=== PATIENT | male | born 1970 | race Two or more races ===

== ENCOUNTER 2020-05-05 14:17 | Outpatient (CLI) | payer OTHER | END 2020-05-05 23:59 | disposition home or self-care (01) | LOC: MSC 14:17 | PROVIDERS: ATTEND Internal Medicine | DX: R10.32 Left lower quadrant pain (principal); E78.00 Pure hypercholesterolemia, unspecified; N52.9 Male erectile dysfunction, unspecified; Z79.52 Long term (current) use of systemic steroids; Z79.899 Other long term (current) drug therapy ==

== ENCOUNTER 2021-08-27 18:33 | Inpatient (IN) | payer OTHER ==
[~2021-08-27] VITALS: Ht 172.7 cm; Wt 78.9 kg
--- NOTE | 2021-08-27 18:43 | NUR ---
BIB C/O L SIDED CHEST PAIN PRESSURE LIKE RADIATES TO L ARM X 2 DAYS. PLACED COMFORTABLY ON B12. ATTACHED TO TWX OPERATOR. VITALS CHECKED. PATIENT IS ALERT, ORIENTED X4.
--- NOTE | 2021-08-27 18:55 | NUR ---
OBEDIENCE TRAINER DRAW BLOOD SAMPLES FOR TESTING
--- NOTE | 2021-08-27 19:03 | NUR ---
IV CANNULA G20 INSERTED ON LEFT FOREARM. FLUSHED AND CHECKED FOR PATENTCY.
--- NOTE | 2021-08-27 19:06 | NUR ---
CXR DONE AT BEDSIDE
[2021-08-27 20:04] LABS: BASOPHILS % (AUTO) 0.6 % (0.0-2.0); EOSINOPHILS % (AUTO) 4.5 % (0.0-6.0); HEMATOCRIT 38 % (39-51); HEMOGLOBIN 12.6 g/dL (13.5-17.5); LYMPHOCYTES # (AUTO) 1.9 K/uL (0.8-4.8); LYMPHOCYTES % (AUTO) 30.7 % (20.0-44.0); MEAN CORPUSCULAR HGB CONC 34 g/dl (31.0-36.0); MEAN CORPUSCULAR VOLUME 89 fL (80-96); MONOCYTES # (AUTO) 0.6 K/uL (0.1-1.30); MONOCYTES % (AUTO) 9.7 % (2.0-12.0); NEUTROPHILS # (AUTO) 3.4 K/uL (1.8-8.9); NEUTROPHILS % (AUTO) 54.5 % (43.0-81.0); PLATELET COUNT (AUTO) 372 K/uL (150-450); RED BLOOD CELL COUNT(AUTO) 4.22 MIL/uL (4.5-6.0); WHITE BLOOD COUNT (AUTO) 6.2 K/uL (4.3-11.0)
[2021-08-27] MEDS ORDERED: ONDANSETRON HCL/PF 4 MG/2 ML VIAL IVP PRN (20:30)
[2021-08-27] MEDS ORDERED: DOCUSATE SODIUM 100 MG CAPSULE PO PRN (20:30)
[2021-08-27] MEDS ORDERED: MORPHINE SULFATE INJ 2 MG/ML DISP.SYRIN IV PRN (20:30)
[2021-08-27] MEDS ORDERED: ASPIRIN 81 MG TAB.CHEW PO ONE (20:30)
[2021-08-27] MEDS ORDERED: MAG HYDROX/AL HYDROX/SIMETH 30 ML UDC PO PRN (20:30)
[2021-08-27] MEDS ORDERED: NITROGLYCERIN 0.4 MG/TAB BOTTLE SL PRN (20:30)
[2021-08-27 20:36] LABS: CALCIUM, SERUM 9.1 mg/dL (8.5-10.1); CARBON DIOXIDE 26 mmol/L (21-32); GLUCOSE 119 mg/dL (74-106); UREA NITROGEN, BLOOD 17 mg/dL (7-18)
[2021-08-27] MEDS ORDERED: ASPIRIN EC 81 MG TABLET.DR PO ONE (20:36)
[2021-08-27 20:48] LABS: CHLORIDE 100 mmol/L (98-107); POTASSIUM 3.5 mmol/L (3.5-5.1); SODIUM SERUM 135 mmol/L (136-145)
--- NOTE | 2021-08-27 20:54 | NUR ---
2DECHO DONE AT BEDSIDE
--- NOTE | 2021-08-27 21:33 | NUR ---
REPORT GIVEN TO GENEVIEVE CHICAS. PATIENT WILL BE GOING TO [facility] 313A.
[2021-08-27] MEDS ORDERED: ATOR20TA PO (21:35)
[2021-08-27] MEDS ORDERED: BUPR-53 PO (21:35)
--- NOTE | 2021-08-27 21:40 | NUR ---
TRANSFERRED TO 313 UNDER ACLS
[2021-08-27 21:45] VITALS: BP 141/88
[2021-08-27] MEDS ORDERED: SIMVASTATIN 20 MG TABLET PO SCH (22:00)
--- NOTE | 2021-08-27 22:30 | NUR ---
RESEARCH PHYSIOLOGIST ADMITTING NOTES: RECEIVED PATIENT FROM ER [facility]IA [facility] [place], ON STABLE CONDITION, NO COMPLAIN OF PAIN AND DISCOMFORT AT THIS TIME, ON TELE MONITORING SB-55 NO SYMPTOMS WAS OBSERVED, PATIENT IS A/O X4 ABLE TO EXPRESS NEEDS, AMBULATORY WITH SUPERVISION. SKIN ASSESSMENT DONE, SKIN IS INTACT, NO SKIN ISSUES WAS OBSERVED, INVENTORY LIST UPDATED AND SIGNED, PATIENT WAS PLACVED IN BED COMFORTABLY, BED IN LOW POSITION, CALL LIGHTS WITHIN REACH, PATIENT WAS ORIENTED TO ROOM,\ INSTRUCTED TO USE THE CALL LIGHTS WHEN NEEDED ASSISTANCE, ALL NEEDS MET, WILL CONTINUE TO MONITOR.
[2021-08-28] VITALS: BP 126/76
[2021-08-28 03:09] LABS: BASOPHILS % (AUTO) 0.7 % (0.0-2.0); EOSINOPHILS % (AUTO) 4.9 % (0.0-6.0); HEMATOCRIT 38 % (39-51); HEMOGLOBIN 12.5 g/dL (13.5-17.5); LYMPHOCYTES % (AUTO) 39.6 % (20.0-44.0); MEAN CORPUSCULAR HGB CONC 33 g/dl (31.0-36.0); MEAN CORPUSCULAR VOLUME 88 fL (80-96); MONOCYTES # (AUTO) 0.6 K/uL (0.1-1.30); MONOCYTES % (AUTO) 11.8 % (2.0-12.0); NEUTROPHILS # (AUTO) 2.1 K/uL (1.8-8.9); PLATELET COUNT (AUTO) 353 K/uL (150-450); RED BLOOD CELL COUNT(AUTO) 4.29 MIL/uL (4.5-6.0)
[2021-08-28 03:41] LABS: ALBUMIN 3.6 g/dL (3.4-5.0); BILIRUBIN,TOTAL 0.3 mg/dL (0.2-1.0); CALCIUM, SERUM 8.9 mg/dL (8.5-10.1); CREATININE 0.9 mg/dL (0.6-1.3); POTASSIUM 3.8 mmol/L (3.5-5.1); TOTAL PROTEIN, SERUM 6.7 g/dL (6.4-8.2)
[2021-08-28 03:52] LABS: THYROID STIMULATING HORMONE 2.434 uIU/mL (0.358-3.74)
[2021-08-28 04:00] VITALS: BP 139/80
--- NOTE | 2021-08-28 07:18 | NUR ---
DELI COOK CLOSING NOTES: PATIENT AWAKE IN BED, BED IN LOW POSITION, CALL LIGHTS WITHIN REACH, NO COMPLAIN OF PAIN AND DISCOMFORT AT THIS TIME, ON ROOM AIR SATURATING WELL, ON TELE [id number], A/OX4 ABLE TO MAKE NEEDS KNOWN, WITH IV LINE AT LFA#20 SL, PATIENT KEPT CLEAN AND DRY ALL NEEDS MET ENDORSE TO INCOMING SHIFT.
[2021-08-28] MEDS: ACETAMINOPHEN 325 MG TABLET PO PRN ×2 (07:39→14:26)
--- NOTE | 2021-08-28 07:45 | NUR ---
RN NOTES RESTING IN BED, REQUESTED TYLENOL FOR HEADACHE, PROVIDED TO PATIENT. NO ACUTE DISTRESS AT THIS TIME.
[2021-08-28 08:00] VITALS: BP 135/80
[2021-08-28 08:44] LABS: CHOLESTEROL 169 mg/dL (<200); FERRITIN 59 ng/mL (8-388); HDL CHOLESTEROL 52 mg/dL (40-60); LDL 99 mg/dL (0-99); TRIGLYCERIDES 60 mg/dL (30-150)
[2021-08-28] MEDS: BUPROPION XL 150 MG TAB.ER.24 PO SCH ×2 (09:00→09:01)
[2021-08-28] MEDS ORDERED: ASPIRIN 81 MG TAB.CHEW PO SCH (09:00)
[2021-08-28] MEDS ORDERED: ENOXAPARIN SODIUM 60 MG/0.6 ML DISP.SYRIN SQ SCH (09:00)
--- NOTE | 2021-08-28 09:15 | NUR ---
RN NOTES CONSENT FORM SIGNED FOR CT ANGIO HEART W/ 3-D IMAGE AND PLACED IN THE CHART. PATIENT REFUSED WELLBUTRIN AT THIS TIME.
[2021-08-28 09:50] LABS: IRON, SERUM 88 ug/dl (50-175); TOTAL IRON BINDING CAPACITY 313 ug/dl (250-450)
[2021-08-28] MEDS ORDERED: ASPI-1169 PO (10:58)
[2021-08-28 12:00] VITALS: BP 140/92
[2021-08-28] MEDS ORDERED: METOPROLOL TARTRATE 50 MG TABLET PO ONE (12:00)
--- NOTE | 2021-08-28 12:00 | NUR ---
RN NOTES NO METOPROLOL DOSE PER JEANA, MATERIALS PLANNING ANALYST RN.
[2021-08-28] MEDS ORDERED: NITROGLYCERIN 0.4 MG/TAB BOTTLE ONE (12:15)
[2021-08-28] MEDS ORDERED: IOHEXOL-350 100 ML VIAL IV ONE ×2 (12:15→12:27)
[2021-08-28] MEDS ORDERED: IV NS 0.9% 250 ML IV ONE (12:16)
[2021-08-28] MEDS ORDERED: CT SWABBABLE VALVE TRANS SET 1 EA INFUS.SET MC ONE (12:16)
[2021-08-28] MEDS ORDERED: METOPROLOL TARTRATE INJ 5 MG/5 ML AMPUL ONE (12:16)
--- NOTE | 2021-08-28 12:42 | NUR ---
rn notes CTA finish at this timer patient stable, bp 114/70, p-70 SR on bedside monitor, o2-99%RA, r-19. administered metoprolol 10mg/ml iv push during procedure, and nitroglycerin SL 0.4 mg. Patient tolerated procedure well, refused dizziness. Will transfer patient back to the Tele unit via wheelchair with transporter Alin.
--- NOTE | 2021-08-28 13:00 | NUR ---
RN NOTES PATIENT RETURNED FROM CT ANGIO PROCEDURE VIA WHEELCHAIR, ACCOMPANIED BY 1 TECH.
--- NOTE | 2021-08-28 14:50 | NUR ---
RN NOTES PT REQUESTED FOR TYLENOL FOR HEADACHE; ALSO PROVIDED CRACKERS AND JUICE.
--- NOTE | 2021-08-28 17:26 | NUR ---
RN NOTES CTA RESULT SEEN BY DR. TSAI, CLEARED FOR D/C; DR. WATSON AWARE W/ ORDER FOR DISCHARGE TO HOME. DISCHARGE INSTRUCTION AND EDUCATION PROVIDED TO PATIENT; VERBALIZED UNDERSTANDING FOR POST-D/C FOLLOW-UP W/ MANAGER PROGRAM IN 1 WEEK. DISCHARGE FORM AND BELONGINGS LIST FORM SIGNED BY PATIENT AND ALL BELONGINGS ACCOUNTED FOR. NAME ARMBAND AND IV LINES REMOVED. NO SKIN ISSUE NOTED. PATIENT IS AMBULATORY W/ STEADY GAIT AND WALKED TO THE LOBBY. PICKED UP BY VIA PRIVATE CAR. CHARGE NURSE AND MD AWARE OF DISCHARGE.
[2021-08-28] MEDS ORDERED: ATORVASTATIN 10 MG TABLET PO SCH (22:00)
== END 2021-08-28 17:20 | disposition home or self-care (01) | DRG 206 ==
LOC: ER 18:38 → TELE 21:14
PROVIDERS: ADMIT Registered Nurse; ATTEND Registered Nurse
DX: M94.0 Chondrocostal junction syndrome [Tietze] (principal); E78.5 Hyperlipidemia, unspecified; I51.7 Cardiomegaly; D64.9 Anemia, unspecified; Z20.822 Contact with and (suspected) exposure to COVID-19; F32.A Depression, unspecified
CPT/HCPCS: 36415; 71045-TC; 75574; 80048-TC; 80053-TC; 80061-TC; 82728-TC; 83540-TC; 83735-TC; 84100-TC; 84443-TC; 84484-TC; 85025-TC; 87081-TC; 93307-TC; G0378; J1650; J2405; J3490; J7050; Q9967